=== PATIENT | male | born 1980 | race Hispanic/Latino ===

== ENCOUNTER 2016-10-18 17:09 | Emergency (ER) | payer MEDICARE ==
--- NOTE | 2016-10-18 20:53 | Emergency Department Report ---
ED General Adult HPI - General Chief complaint: Fall Stated complaint: ELEVATED BP/NECK/ARM/HAND PAIN Time Seen by Provider: 10/18/16 20:43 Source: patient Mode of arrival: Ambulatory Limitations: No Limitations - History of Present Illness Initial comments: Chronic pain patient presents requesting occasional refill for [place] 10/325 by mouth 3 times a day and Zanaflex twice a day which she takes for chronic back pain due to bulging L3, L4, and L5 discs which causes his legs to give out every now and then. Patient states he missed his PM appointment 3 days ago as he didn't have money to pay for visit. States received his check and has appointment rescheduled for 10/24/16. States he ran out of pain meds on Thursday (4 days ago) and would like some refills until his next appointment. Patient reports falling about a week ago after his legs gave out on him. States he was taking his pain meds for it until he ran out. States hurting all over and would like something for pain. Denies head injury, LOC, chest pain or discomfort. States he has HTN and is "supposed to be on Lisinopril 20 mg PO daily" which he hasn't taken in 2 weeks after he ran out. States had throbbing headache that comes and goes. Denies other associated symptoms, and complaints today. Allergy confirme. 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 - Related Data Previous Rx's Medication Instructions Recorded Last Taken Type Acetaminophen/Codeine [Tylenol #3] 1 tab PO Q6H PRN #7 tab 06/26/16 Unknown Rx Diclofenac Sodium 75 mg PO BID #20 tablet. 06/26/16 Unknown Rx Lisinopril [Zestril TAB] 10 mg PO QDAY #10 tablet 06/26/16 Unknown Rx Ketorolac [Toradol] 10 mg PO Q6H PRN #20 tablet 07/02/16 Unknown Rx Naproxen [Naprosyn TAB] 500 mg PO BID PRN #14 tablet 08/25/16 Unknown Rx HYDROcodone/APAP 5-325 [[place] 1 each PO TID PRN #15 tablet 10/18/16 Unknown Rx 5/325] Lisinopril [Zestril TAB] 20 mg PO QDAY #20 tablet 10/18/16 Unknown Rx Tizanidine HCl [Zanaflex] 4 mg PO TID PRN #10 capsule 10/18/16 Unknown Rx Allergies Allergy/AdvReac Type Severity Reaction Status Date / Time tramadol Allergy Rash Verified 08/25/16 14:13 ED Review of Systems ROS: Stated complaint: ELEVATED BP/NECK/ARM/HAND PAIN Other details as noted in HPI Comment: All other systems reviewed and negative ED Past Medical Hx - Past Medical History Previous Medical History?: Yes Hx Hypertension: Yes Additional medical history: MORBID OBESITY. CHRONIC BACK PAIN. HERNIATED DISCS LUMBAR - Surgical History Past Surgical History?: No - Social History Smoking Status: Current Some Day Smoker Substance Use Type: None - Medications Home Medications: Home Medications Medication Instructions Recorded Confirmed Last Taken Type Acetaminophen/Codeine [Tylenol #3] 1 tab PO Q6H PRN #7 tab 06/26/16 Unknown Rx Diclofenac Sodium 75 mg PO BID #20 tablet. 06/26/16 Unknown Rx Lisinopril [Zestril TAB] 10 mg PO QDAY #10 tablet 06/26/16 Unknown Rx Ketorolac [Toradol] 10 mg PO Q6H PRN #20 tablet 07/02/16 Unknown Rx Naproxen [Naprosyn TAB] 500 mg PO BID PRN #14 tablet 08/25/16 10/18/16 Unknown Rx HYDROcodone/APAP 5-325 [[place] 1 each PO TID PRN #15 tablet 10/18/16 Unknown Rx 5/325] Lisinopril [Zestril TAB] 20 mg PO QDAY #20 tablet 10/18/16 Unknown Rx Tizanidine HCl [Zanaflex] 4 mg PO TID PRN #10 capsule 10/18/16 Unknown Rx ED Physical Exam - General Limitations: No Limitations General appearance: alert, in no apparent distress, obese (morbidly) - Head Head exam: Present: atraumatic, normocephalic - Eye Eye exam: Present: normal appearance, PERRL, EOMI. Absent: scleral icterus, conjunctival injection, periorbital swelling, periorbital tenderness - Neck Neck exam: Present: normal inspection, tenderness (b/l C-spine), full ROM. Absent: meningismus, lymphadenopathy - Respiratory Respiratory exam: Present: normal lung sounds bilaterally. Absent: respiratory distress, chest wall tenderness - Cardiovascular Cardiovascular Exam: Present: regular rate, normal rhythm - GI/Abdominal GI/Abdominal exam: Present: soft, normal bowel sounds - Extremities Exam Extremities exam: Present: normal inspection, full ROM, normal capillary refill , joint swelling. Absent: tenderness (b/l knee), pedal edema, calf tenderness - Back Exam Back exam: Present: normal inspection, tenderness, vertebral tenderness (L- spine region). Absent: full ROM, CVA tenderness (R), CVA tenderness (L) - Neurological Exam Neurological exam: Present: alert, oriented X3, normal gait, reflexes normal. Absent: motor sensory deficit - Psychiatric Psychiatric exam: Present: normal affect, normal mood - Skin Skin exam: Present: warm, dry, intact ED Course Vital Signs 10/18/16 10/18/16 10/18/16 17:32 21:21 21:26 Temperature 98.7 F 97.8 F Pulse Rate 87 86 Respiratory 16 20 18 Rate Blood Pressure 176/97 Blood Pressure 154/97 [Left] O2 Sat by Pulse 97 97 Oximetry ED Medical Decision Making - Medical Decision Making 36 YOM with chronic pain and HTN. Patient is stable. He will be DC'd immediate quantity of Wysox and Zanaflex (see rx) pending his appointment with his brush painter in 10/24/16. The patient will be restarted on his lisinopril 20 mg for his elevated blood pressure (see prescription). The potential for adequate BP control in preventing heart attack and stroke discussed. Other patient education, follow-up/referral, and return instructions are provided. He verbalized understanding and is agreeable to plan. Critical care attestation.: If time is entered above; I have spent that time in minutes in the direct care of this critically ill patient, excluding procedure time. ED Disposition Clinical Impression: Pain management, Unspecified essential hypertension Chronic pain Qualifiers: Chronic pain type: chronic pain syndrome Qualified Code(s): G89.4 - Chronic pain syndrome Disposition: DISCHARGED TO HOME OR SELFCARE Is pt being admited?: No Does the pt Need Aspirin: No Condition: Stable Instructions: Chronic Pain (ED), Hypertension (ED) Additional Instructions: Follow Instructions for care. Be complaint up with and use medications as prescribed. Follow-up immediately with your PCP for your elevated blood pressure. As not doing so in a timely manner could result in a heart attack or stroke. Continue to follow up with your brush painter. Return to the ED for new or worsening condition. Prescriptions: HYDROcodone/APAP 5-325 [[place] 5/325] 1 each PO TID PRN #15 tablet PRN Reason: Pain Tizanidine HCl [Zanaflex] 4 mg PO TID PRN #10 capsule PRN Reason: Muscle Spasm Lisinopril [Zestril TAB] 20 mg PO QDAY #20 tablet Referrals: PRIMARY CARE, [Primary Care Provider] - 3-5 Days
[2016-10-18] MEDS ORDERED: NORCO 7.5/325 PO ONE (21:02)
[2016-10-18 21:28] VITALS: BP 154/97
== END 2016-10-18 21:30 | disposition home or self-care (01) ==
LOC: ED 17:09
DX: I10 Essential (primary) hypertension (principal); G89.4 Chronic pain syndrome; E66.01 Morbid (severe) obesity due to excess calories; Z88.8 Allergy status to other drugs, medicaments and biological substances; Z72.0 Tobacco use
CPT/HCPCS: 99282

== ENCOUNTER 2016-12-17 14:53 | Emergency (ER) | payer MEDICARE ==
[2016-12-17 16:50] LABS: Urine Drugs of Abuse Note Disclamer
[2016-12-17 16:53] LABS: Basophils % (Auto) 0.6 % (0.0-1.8); Eosinophils % (Auto) 0.2 % (0.0-4.3); Hematocrit 47.2 % (35.5-45.6); Hemoglobin 15.6 gm/dl (11.8-15.2); Mean Corpuscular HGB Conc 33 % (32-34); Mean Corpuscular Hemoglobin 31 pg (28-32); Mean Corpuscular Volume 93 fl (84-94); Platelet Count 359 K/mm3 (140-440); Red Blood Count 5.07 M/mm3 (3.65-5.03); Red Cell Distribution Width 13.8 % (13.2-15.2); White Blood Count 12.1 K/mm3 (4.5-11.0)
[2016-12-17 17:04] LABS: Bilirubin,Urine NEG (Negative); Blood,Urine SM (Negative); Ketones,Urine NEG (Negative); Leukocyte Esterase,Urine LG (Negative); Mucus,Urine FEW /HPF; Nitrite,Urine NEG (Negative); Protein,Urine <15 mg/dL mg/dL (Negative); Urobilinogen,Urine < 2.0 mg/dL (<2.0)
[2016-12-17 17:09] LABS: Anion Gap 17 mmol/L; Blood Urea Nitrogen 6 mg/dL (9-20); Calcium 9.9 mg/dL (8.4-10.2); Carbon Dioxide 27 mmol/L (22-30); Chloride 100.6 mmol/L (98-107); Glucose 111 mg/dL (75-100); Potassium 3.4 mmol/L (3.6-5.0); Sodium 141 mmol/L (137-145)
[2016-12-17] MEDS ORDERED: K-DUR PO ONE (21:32)
[2016-12-17] MEDS ORDERED: TORADOL IM ONE (21:46)
--- NOTE | 2016-12-17 22:15 | Emergency Department Report ---
ED Psych HPI - General Chief Complaint: Psych Stated Complaint: DEPRESSED/MH Time Seen by Provider: 12/17/16 21:31 Source: patient Mode of arrival: Ambulatory Limitations: No Limitations - History of Present Illness Initial Comments: 36-year-old male with a past medical history of hypertension, major depressive disorder, generalized anxiety disorder, chronic back pain secondary to herniated disc, DJD, and sciatica presents to the hospital with complaints of depression and suicidal ideation. Patient has been off his psychiatric medication Effexor, BuSpar, and Seroquel 1 month. He has been feeling more depressed for the last few days and having thoughts of killing himself. He sleeping a lot more, loss of hope, he is tired of having pain all the time. No complaints of hallucinations or homicidal ideation. Patient complains of chronic lower back pain rated 8/10 in intensity. It is constant, worse with movement and palpation, and no specific alleviating factors. Patient states pain is unchanged from baseline. Patient has a history of suicide attempt by overdose 3-4 years ago. - Related Data Home Medications Medication Instructions Recorded Confirmed Last Taken HYDROcodone/APAP 10-325 [[place] 10 mg PO Q6HR PRN 12/17/16 12/17/16 12/14/16 10/325] Lisinopril [Zestril] 20 mg PO QDAY 12/17/16 12/17/16 12/14/16 Quetiapine Fumarate [Seroquel] 100 mg PO DAILY 12/17/16 12/17/16 12/14/16 Venlafaxine Xr [Effexor Xr] 300 mg PO QDAY 12/17/16 12/17/16 12/14/16 busPIRone [Buspar] 10 mg PO DAILY 12/17/16 12/17/16 12/14/16 Allergies Allergy/AdvReac Type Severity Reaction Status Date / Time tramadol Allergy FLUSH / Verified 12/17/16 15:39 VOMIT ED Review of Systems ROS: Stated complaint: DEPRESSED/MH Other details as noted in HPI Comment: All other systems reviewed and negative Other: Constitutional: No fevers chills Eyes: No eye pain visual changes ENT: No ear pain or throat pain Neck: Denies pain Respiratory: Denies cough wheezing shortness of breath Cardiovascular: Denies chest pain, palpitations, syncope GI: Denies abdominal pain, nausea, vomiting, diarrhea : Denies dysuria Musculoskeletal: as pr hpi Skin: Denies rash, lesions, erythema Neurologic: Denies headache, numbness, weakness Psychiatric: as per hpi ED Past Medical Hx - Past Medical History Hx Hypertension: Yes Hx Arthritis: Yes (OSTEOARTHRITIS) Hx Psychiatric Treatment: Yes (MAJOR DEPRESSIVE DISORDER / GENERALIZED ANXIETY DISORDER / ADD) Additional medical history: MORBID OBESITY. CHRONIC BACK PAIN. HERNIATED DISCS LUMBAR. DDD / SCIATICA - Surgical History Past Surgical History?: No - Social History Smoking Status: Current Some Day Smoker Substance Use Type: Prescribed, Other - Medications Home Medications: Home Medications Medication Instructions Recorded Confirmed Last Taken Type HYDROcodone/APAP 10-325 [[place] 10 mg PO Q6HR PRN 12/17/16 12/17/16 12/14/16 History 10/325] Lisinopril [Zestril] 20 mg PO QDAY 12/17/16 12/17/16 12/14/16 History Quetiapine Fumarate [Seroquel] 100 mg PO DAILY 12/17/16 12/17/16 12/14/16 History Venlafaxine Xr [Effexor Xr] 300 mg PO QDAY 12/17/16 12/17/16 12/14/16 History busPIRone [Buspar] 10 mg PO DAILY 12/17/16 12/17/16 12/14/16 History ED Physical Exam - General Limitations: No Limitations - Other Other exam information: General: No limitations, patient is alert in no acute distress Head exam: Atraumatic, normocephalic Eyes exam: Normal appearance ENT: Moist mucous membrane, normal oropharynx Neck exam: Normal inspection, full range of motion, no meningismus nontender Respiratory exam: Clear to auscultation bilateral, no wheezes, rales, crackles Cardiovascular: Normal rate and rhythm, normal heart sounds Abdomen: Soft, nondistended, and nontender, with normal bowel sounds, no rebound, or guarding Extremity: Full range of motion normal inspection no deformity Back: Normal Inspection, full range of motion, lower back tenderness increased pain with movement Neurologic: Alert, oriented x3, cranial nerves intact, no motor or sensory deficit Psychiatric: normal affect, normal mood Skin: Warm, dry, intact ED Course Vital Signs 12/17/16 12/17/16 12/17/16 15:35 21:27 21:28 Temperature 98.3 F Pulse Rate 89 88 Respiratory 20 18 18 Rate Blood Pressure 158/103 Blood Pressure 179/107 [Left] O2 Sat by Pulse 100 98 Oximetry - Reevaluation(s) Reevaluation #1: 12/17/16 22:20 Toradol, potassium, and Bactrim ED Medical Decision Making - Lab Data Result diagrams: 12/17/16 16:17 12/17/16 16:17 Lab Results 12/17/16 12/17/16 12/17/16 Range/Units 16:17 16:17 16:17 WBC 12.1 H (4.5-11.0) K/mm3 RBC 5.07 H (3.65-5.03) M/mm3 Hgb 15.6 H (11.8-15.2) gm/dl Hct 47.2 H (35.5-45.6) % MCV 93 (84-94) fl MCH 31 (28-32) pg MCHC 33 (32-34) % RDW 13.8 (13.2-15.2) % Plt Count 359 (140-440) K/mm3 Lymph % (Auto) 15.8 (13.4-35.0) % Stokes % (Auto) 5.4 (0.0-7.3) % Eos % (Auto) 0.2 (0.0-4.3) % Baso % (Auto) 0.6 (0.0-1.8) % Lymph # 1.9 (1.2-5.4) K/mm3 Stokes # 0.7 (0.0-0.8) K/mm3 Eos # 0.0 (0.0-0.4) K/mm3 Baso # 0.1 (0.0-0.1) K/mm3 Seg Neutrophils % 78.0 H (40.0-70.0) % Seg Neutrophils # 9.4 H (1.8-7.7) K/mm3 Sodium 141 (137-145) mmol/L Potassium 3.4 L (3.6-5.0) mmol/L Chloride 100.6 (98-107) mmol/L Carbon Dioxide 27 (22-30) mmol/L Anion Gap 17 mmol/L BUN 6 L (9-20) mg/dL Creatinine 0.6 L (0.8-1.5) mg/dL Estimated GFR > 60 ml/min BUN/Creatinine Ratio 10.00 % Glucose 111 H (75-100) mg/dL Calcium 9.9 (8.4-10.2) mg/dL Magnesium (1.7-2.3) mg/dL Urine Color (Yellow) Urine Turbidity (Clear) Urine pH (5.0-7.0) Ur Specific [place] (1.003-1.030) Urine Protein (Negative) mg/dL Urine Glucose (UA) (Negative) mg/dL Urine Ketones (Negative) mg/dL Urine Blood (Negative) Urine Nitrite (Negative) Urine Bilirubin (Negative) Urine Urobilinogen (<2.0) mg/dL Ur Leukocyte Esterase (Negative) Urine WBC (Auto) (0.0-6.0) /HPF Urine RBC (Auto) (0.0-6.0) /HPF U Epithel Cells (Auto) (0-13.0) /HPF Calcium Oxalate Crystal Urine Mucus /HPF Urine Opiates Screen Urine Methadone Screen Ur Barbiturates Screen Ur Phencyclidine Scrn Ur Amphetamines Screen U Benzodiazepines Scrn Urine Cocaine Screen U Marijuana (THC) Screen Drugs of Abuse Note Plasma/Serum Alcohol < 0.01 (0-0.07) gm% 12/17/16 12/17/16 12/17/16 Range/Units 16:17 16:31 16:31 WBC (4.5-11.0) K/mm3 RBC (3.65-5.03) M/mm3 Hgb (11.8-15.2) gm/dl Hct (35.5-45.6) % MCV (84-94) fl MCH (28-32) pg MCHC (32-34) % RDW (13.2-15.2) % Plt Count (140-440) K/mm3 Lymph % (Auto) (13.4-35.0) % Stokes % (Auto) (0.0-7.3) % Eos % (Auto) (0.0-4.3) % Baso % (Auto) (0.0-1.8) % Lymph # (1.2-5.4) K/mm3 Stokes # (0.0-0.8) K/mm3 Eos # (0.0-0.4) K/mm3 Baso # (0.0-0.1) K/mm3 Seg Neutrophils % (40.0-70.0) % Seg Neutrophils # (1.8-7.7) K/mm3 Sodium (137-145) mmol/L Potassium (3.6-5.0) mmol/L Chloride (98-107) mmol/L Carbon Dioxide (22-30) mmol/L Anion Gap mmol/L BUN (9-20) mg/dL Creatinine (0.8-1.5) mg/dL Estimated GFR ml/min BUN/Creatinine Ratio % Glucose (75-100) mg/dL Calcium (8.4-10.2) mg/dL Magnesium 1.9 (1.7-2.3) mg/dL Urine Color Yellow (Yellow) Urine Turbidity Clear (Clear) Urine pH 5.0 (5.0-7.0) Ur Specific [place] 1.018 (1.003-1.030) Urine Protein <15 mg/dl (Negative) mg/dL Urine Glucose (UA) Neg (Negative) mg/dL Urine Ketones Neg (Negative) mg/dL Urine Blood Sm (Negative) Urine Nitrite Neg (Negative) Urine Bilirubin Neg (Negative) Urine Urobilinogen < 2.0 (<2.0) mg/dL Ur Leukocyte Esterase Lg (Negative) Urine WBC (Auto) 19.0 H (0.0-6.0) /HPF Urine RBC (Auto) 2.0 (0.0-6.0) /HPF U Epithel Cells (Auto) 2.0 (0-13.0) /HPF Calcium Oxalate Crystal 2+ Urine Mucus Few /HPF Urine Opiates Screen Presumptive negative Urine Methadone Screen Presumptive negative Ur Barbiturates Screen Presumptive negative Ur Phencyclidine Scrn Presumptive negative Ur Amphetamines Screen Presumptive negative U Benzodiazepines Scrn Presumptive negative Urine Cocaine Screen Presumptive negative U Marijuana (THC) Screen Presumptive negative Drugs of Abuse Note Disclamer Plasma/Serum Alcohol (0-0.07) gm% - Medical Decision Making Patient has mild hypokalemia which was supplemented in the ER. Magnesium is normal. Patient has mildly her leukocytosis without enters of dysuria. Urine culture ordered and patient will be treated with Bactrim. I will reinitiate patient's previous psychiatric medication as well as the medication he currently takes. 1013 and transfer form signed. Patient awaiting placement. - Differential Diagnosis chronic pain, suicidal ideation, depression, medication noncompliance Critical Care Time: No Critical care attestation.: If time is entered above; I have spent that time in minutes in the direct care of this critically ill patient, excluding procedure time. ED Disposition Clinical Impression: Suicidal ideation, Depression, Chronic back pain, UTI (urinary tract infection) , Noncompliance with medication regimen Disposition: DC/TX PSY HOSP/PSY UNIT Is pt being admited?: No Does the pt Need Aspirin: No Condition: Stable Time of Disposition: 22:15 (awaiting acceptance)
[2016-12-17] MEDS: BACTRIM DS PO SCH (22:36)
[2016-12-17] MEDS ORDERED: MOTRIN PO PRN (22:59)
[2016-12-17] MEDS ORDERED: ALUM-MAG HYDROX-SIMETH 200-200-20MG/5ML PO PRN (22:59)
[2016-12-17] MEDS ORDERED: PERCOCET 5/325 PO PRN (22:59)
[2016-12-17] MEDS ORDERED: MILK OF MAGNESIA PO PRN (22:59)
[2016-12-18 08:45] VITALS: BP 165/99
--- NOTE | 2016-12-18 09:55 | Consultation ---
History of Present Illness - Reason for Consult Consult date: 12/18/16 Reason for consult: Mental Health Evaluation Requesting physician: ANISA CARO - Chief Complaint Chief complaint: "I have Suicidal Thoughts" - History of Present Psychiatric Illness 36-year-old male with a past medical history of hypertension, major depressive disorder, generalized anxiety disorder, chronic back pain secondary to herniated disc, DJD, and sciatica presents to the hospital with complaints of depression and suicidal ideation. Today patients admits to SI's. He states that he has thought of multiple plans (ODing or walking in front of traffic.) Patient states that he hasn't taken his medication x 1 or 2 month. He stated, " I felt okay, that's why I stopped taking my medications." He acknowledged he takes Seroquel, Effexor, and Buspar. Patient said he knew he needed help, so that was his indication to come to [facility]. Normally his depression can get so bad , that he would experience psychosis, per the patient. Patient rates his anxiety /depression 9/10 with 10 being the worse. Patient states he has not gotten adequate sleep in days, but his appetite is "good". Patient denies HI's and AVH' s at this time. Medications and Allergies Allergies Allergy/AdvReac Type Severity Reaction Status Date / Time tramadol Allergy FLUSH / Verified 12/17/16 15:39 VOMIT Home Medications Medication Instructions Recorded Confirmed Last Taken Type HYDROcodone/APAP 10-325 [[place] 10 mg PO Q6HR PRN 12/17/16 12/17/16 12/14/16 History 10/325] Lisinopril [Zestril] 20 mg PO QDAY 12/17/16 12/17/16 12/14/16 History Quetiapine Fumarate [Seroquel] 100 mg PO DAILY 12/17/16 12/17/16 12/14/16 History Venlafaxine Xr [Effexor Xr] 300 mg PO QDAY 12/17/16 12/17/16 12/14/16 History busPIRone [Buspar] 10 mg PO DAILY 12/17/16 12/17/16 12/14/16 History Active Meds: Active Medications Al Hydrox/Mg Hydrox/Simethicone (Alum-Mag Hydrox-Simeth [id number]/5ml) 30 ml PO Q4HR PRN PRN Reason: Indigestion Buspirone HCl (Buspar) 10 mg PO DAILY [facility] Ibuprofen (Motrin) 800 mg PO Q8HR PRN PRN Reason: Pain Lisinopril (Zestril) 20 mg PO QDAY [facility] Magnesium Hydroxide (Milk Of Magnesia) 30 ml PO Q12HR PRN PRN Reason: Constipation Oxycodone/Acetaminophen (Percocet 5/325) 1 tab PO Q6H PRN PRN Reason: Pain, Moderate (4-6) Quetiapine Fumarate (Seroquel) 100 mg PO QHS [facility] Trimethoprim/Sulfamethoxazole (Bactrim Ds) 1 each PO Q12HR SARAHI Stop: 12/20/16 10:01 Last Admin: 12/17/16 22:36 Dose: 1 each Venlafaxine HCl (Effexor Xr) 300 mg PO QDAY [facility] Past psychiatric history - Past Medical History Past Medical History: other (OSTEOARTHRITIS, Back Pain) Past Surgical History: No surgical history - past Psychiatric treatment and history Psych: Anxiety, Depression psychiatric treatment history: [facility], [facility], [facility] and currently seen at [facility]. Sister dx with Schizoaffectiv Disorder.. - Social History Social history: , other ( graduate) Mental Status Exam - Vital signs Last Vital Signs Temp 97.6 F 12/18/16 08:00 Pulse 72 12/18/16 08:00 Resp 16 12/18/16 08:44 BP 165/99 12/18/16 08:00 Pulse Ox 97 12/18/16 08:44 - Exam Narrative exam: ROS (+) depression, (-) psychosis Orientation: time, place, person Affect: flat Mood: other ("Depressed") Thought content: other (None) Thought Process: Intact Perceptions: none Speech: normal rate and pattern Concentration: other (Intact) Motor activity: other (Ambulatory) Level of consciousness: alert Memory: Intact Sleep Symptoms: Difficulty Falling Asleep Results Result Diagrams: 12/17/16 16:17 12/17/16 16:17 Abnormal lab results 12/17/16 12/17/16 12/17/16 Range/Units 16:17 16:17 16:31 WBC 12.1 H (4.5-11.0) K/mm3 RBC 5.07 H (3.65-5.03) M/mm3 Hgb 15.6 H (11.8-15.2) gm/dl Hct 47.2 H (35.5-45.6) % Seg Neutrophils % 78.0 H (40.0-70.0) % Seg Neutrophils # 9.4 H (1.8-7.7) K/mm3 Potassium 3.4 L (3.6-5.0) mmol/L BUN 6 L (9-20) mg/dL Creatinine 0.6 L (0.8-1.5) mg/dL Glucose 111 H (75-100) mg/dL Urine WBC (Auto) 19.0 H (0.0-6.0) /HPF All other labs normal. Assessment and Plan Assessment and plan: Impression: Hx of MDD and ALLIE. Patient presents disheveled with a depressed mood. He realize that he needs help so he voluntarily came to [facility]. Recommendation: Continue 1013 and pending inpatient psychiatric services. Continue Seroquel, Effexor, and Buspar. Discussed with patient black box warning referencing Antidepressants. Also, we discussed metabolic side effects of Seroquel.
[2016-12-18] MEDS ORDERED: BUSPAR PO SCH (10:00)
[2016-12-18] MEDS ORDERED: EFFEXOR XR PO SCH (10:00)
[2016-12-18] MEDS ORDERED: ZESTRIL PO SCH (10:00)
[2016-12-18] MEDS: BACTRIM DS PO SCH (10:04)
== END 2016-12-18 11:36 ==
LOC: ED 14:53 → EEVIPCON 14:53 → ED 12-18 11:36
DX: R45.851 Suicidal ideations (principal); F32.9 Major depressive disorder, single episode, unspecified; G89.29 Other chronic pain; N39.0 Urinary tract infection, site not specified; I10 Essential (primary) hypertension; M19.90 Unspecified osteoarthritis, unspecified site; M51.36 Other intervertebral disc degeneration, lumbar region; F17.200 Nicotine dependence, unspecified, uncomplicated; Z88.8 Allergy status to other drugs, medicaments and biological substances
CPT/HCPCS: 36415; 80048; 80307; 81001; 83735; 85025; 87086; 96372; 99285; G0480; J1885; 80320

== ENCOUNTER 2016-12-29 14:03 | Emergency (ER) | payer MEDICARE ==
[2016-12-29 15:01] LABS: Basophils % (Auto) 0.6 % (0.0-1.8); Eosinophils % (Auto) 0.2 % (0.0-4.3); Hematocrit 46.4 % (35.5-45.6); Hemoglobin 15.6 gm/dl (11.8-15.2); Mean Corpuscular HGB Conc 34 % (32-34); Mean Corpuscular Hemoglobin 31 pg (28-32); Mean Corpuscular Volume 92 fl (84-94); Platelet Count 335 K/mm3 (140-440); Red Blood Count 5.03 M/mm3 (3.65-5.03); Red Cell Distribution Width 13.8 % (13.2-15.2)
[2016-12-29 15:16] LABS: Anion Gap 17 mmol/L; Blood Urea Nitrogen 9 mg/dL (9-20); Calcium 9.5 mg/dL (8.4-10.2); Carbon Dioxide 28 mmol/L (22-30); Chloride 95.4 mmol/L (98-107); Glucose 137 mg/dL (75-100); Potassium 3.5 mmol/L (3.6-5.0); Sodium 137 mmol/L (137-145)
[2016-12-29 16:19] LABS: Urine Drugs of Abuse Note Disclamer
[2016-12-29 16:34] LABS: Bilirubin,Urine NEG (Negative); Blood,Urine NEG (Negative); Ketones,Urine TR mg/dL (Negative); Leukocyte Esterase,Urine MOD (Negative); Mucus,Urine 3+ /HPF; Nitrite,Urine NEG (Negative); Urobilinogen,Urine < 2.0 mg/dL (<2.0)
[2016-12-29] MEDS ORDERED: MOTRIN PO ONE (19:32)
[2016-12-29] MEDS ORDERED: NORCO 10/325 PO PRN (21:36)
[2016-12-29] MEDS ORDERED: VALIUM PO PRN (21:41)
[2016-12-29] MEDS ORDERED: ZESTRIL PO SCH (22:00)
--- NOTE | 2016-12-29 23:05 | Emergency Department Report ---
ED Psych HPI - General Chief Complaint: Psych Stated Complaint: NETTA MERRITTLORELEI Time Seen by Provider: 12/29/16 21:06 Source: patient Mode of arrival: Ambulatory - History of Present Illness Initial Comments: Patient is a 36-year-old male with a long history of depression and suicidal ideations in the past. Patient presents today with suicidal ideation and attempted to slit his left wrist. Patient says he uses it only cannot find a sharp knife. Patient feels more depressed and wants to end his life. Patient was recently admitted to a psych hospital and was discharged 1 week ago after saying he felt better when he reports he did not feel better he still feels depressed and suicidal. Patient takes , Effexor, Seroquel, Valium for his psych illnesses and reports that he has not missed any of his doses. Otherwise no other complaints. She denies hallucinations or delusions or homicidal ideations. MD Complaint: suicidal ideation, feels depressed -: week(s) (>1 week) Associated Psychiatric Symptoms: depression, suicidal ideation History of same: Yes (same as last week) Quality: constant, getting worse Improves With: none Worsens With: none Associated Symptoms: denies other symptoms Treatments Prior to Arrival: placed on mental he If Self Harm: admits thoughts of, has plan, has acted on plan Details of Plan: Patient attempt to cut his L wrist today, but could not find a sharp knife - Related Data Home Medications Medication Instructions Recorded Confirmed Last Taken HYDROcodone/APAP 10-325 [[place] 10 mg PO Q6HR PRN 12/17/16 12/17/16 12/14/16 10/325] Lisinopril [Zestril] 20 mg PO QDAY 12/17/16 12/17/16 12/14/16 Quetiapine Fumarate [Seroquel] 100 mg PO DAILY 12/17/16 12/17/16 12/14/16 Venlafaxine Xr [Effexor Xr] 300 mg PO QDAY 12/17/16 12/17/16 12/14/16 busPIRone [Buspar] 10 mg PO DAILY 12/17/16 12/17/16 12/14/16 Allergies Allergy/AdvReac Type Severity Reaction Status Date / Time tramadol Allergy FLUSH / Verified 12/17/16 15:39 VOMIT ED Review of Systems ROS: Stated complaint: MH EVAL Other details as noted in HPI Comment: All other systems reviewed and negative ED Past Medical Hx - Past Medical History Hx Hypertension: Yes Hx Arthritis: Yes (OSTEOARTHRITIS) Hx Psychiatric Treatment: Yes (MAJOR DEPRESSIVE DISORDER / GENERALIZED ANXIETY DISORDER / ADD) Additional medical history: MORBID OBESITY. CHRONIC BACK PAIN. HERNIATED DISCS LUMBAR. DDD / SCIATICA - Social History Smoking Status: Unknown if ever smoked Substance Use Type: None - Medications Home Medications: Home Medications Medication Instructions Recorded Confirmed Last Taken Type HYDROcodone/APAP 10-325 [[place] 10 mg PO Q6HR PRN 12/17/16 12/17/16 12/14/16 History 10/325] Lisinopril [Zestril] 20 mg PO QDAY 12/17/16 12/17/16 12/14/16 History Quetiapine Fumarate [Seroquel] 100 mg PO DAILY 12/17/16 12/17/16 12/14/16 History Venlafaxine Xr [Effexor Xr] 300 mg PO QDAY 12/17/16 12/17/16 12/14/16 History busPIRone [Buspar] 10 mg PO DAILY 12/17/16 12/17/16 12/14/16 History ED Physical Exam - General Limitations: No Limitations General appearance: alert, in no apparent distress - Head Head exam: Present: atraumatic, normocephalic - Eye Eye exam: Present: normal appearance - ENT ENT exam: Present: mucous membranes moist - Respiratory Respiratory exam: Present: normal lung sounds bilaterally. Absent: respiratory distress - Cardiovascular Cardiovascular Exam: Present: regular rate, normal rhythm. Absent: systolic murmur, diastolic murmur, rubs, gallop - GI/Abdominal GI/Abdominal exam: Present: soft, normal bowel sounds - Rectal Rectal exam: Present: deferred - Expanded Upper Extremity Exam Left General: Present: abrasion Shoulder Exam: Present: normal inspection, full ROM Upper Arm exam: Present: normal inspection, full ROM Elbow exam: Present: normal inspection, full ROM Forearm Wrist exam: Present: abrasion Hand Wrist exam: Present: abrasion Neuro motor exam: Present: wrist extension intact, thumb opposition intact, thumb IP flexion intact, thumb adduction intact, fingers 2-5 abduction intact Neurosensory exam: Present: 2-point discrimination, radial nerve intact, ulnar nerve intact, median nerve intact Vascular: Present: normal capillary refill, radial pulse, ulnar pulse. Absent: vascular compromise, pulse deficit radial art, pulse deficit ulnar art - Back Exam Back exam: Present: normal inspection - Neurological Exam Neurological exam: Present: alert, oriented X3 - Psychiatric Psychiatric exam: Present: depressed, flat affect - Skin Skin exam: Present: warm, dry ED Course Vital Signs 12/29/16 12/29/16 12/29/16 14:28 20:39 21:29 Temperature 98.2 F Pulse Rate 100 H 95 H Respiratory 20 18 16 Rate Blood Pressure 154/105 Blood Pressure 135/89 [Left] O2 Sat by Pulse 96 98 Oximetry ED Medical Decision Making - Lab Data Result diagrams: 12/29/16 14:42 12/29/16 14:42 - Medical Decision Making Patient placed on a 1013 patient to be evaluated by psychiatry screening team. Critical care attestation.: If time is entered above; I have spent that time in minutes in the direct care of this critically ill patient, excluding procedure time. ED Disposition Condition: Stable Referrals: PRIMARY CARE, [Primary Care Provider] - 3-5 Days
[2016-12-30 07:13] VITALS: BP 103/62
[2016-12-30] MEDS ORDERED: EFFEXOR XR PO SCH (10:00)
== END 2016-12-30 10:36 | disposition home or self-care (01) ==
LOC: ED 14:03 → EEVIPCON 14:03 → ED 12-30 10:36
DX: R45.851 Suicidal ideations (principal); F32.9 Major depressive disorder, single episode, unspecified; M19.90 Unspecified osteoarthritis, unspecified site; F41.9 Anxiety disorder, unspecified; G89.29 Other chronic pain; E66.01 Morbid (severe) obesity due to excess calories; Z88.8 Allergy status to other drugs, medicaments and biological substances
CPT/HCPCS: 36415; 80048; 80307; 81001; 85025; 93005; 93010; 99284

== ENCOUNTER 2018-11-25 19:45 | Emergency (ER) | payer MEDICARE ==
--- NOTE | 2018-11-25 20:00 | Emergency Department Report ---
Blank Doc - Documentation Documentation: This is a 38-year-old male that presents with bilateral knee pain s/p fall. This initial assessment/diagnostic orders/clinical plan/treatment(s) is/are subject to change based on patient's health status, clinical progression and re- assessment by fellow clinical providers in the ED. Further treatment and workup at subsequent clinical providers discretion. Patient/guardians urged not to elope from the ED as their condition may be serious if not clinically assessed and managed. Initial orders include: 1- Patient sent to [facility] for further evaluation and treatment 2- xrays
--- NOTE | 2018-11-25 21:04 | XRay Report ---
PROCEDURE: XR KNEE BILAT 3V TECHNIQUE: Bilateral knee radiographs, standing AP view. HISTORY: knee pain COMPARISONS: None . FINDINGS: Fracture (s) and/or Dislocation(s): None . Joint space(s): Normal . Soft tissues: Normal . Bone mineralization: Normal . Foreign bodies: None . IMPRESSION: Normal Examination . This document is electronically signed by Marc Melvin MD., November 25 2018 09:01:23 PM ET
--- NOTE | 2018-11-25 21:25 | Emergency Department Report ---
ED Extremity Problem HPI - General Chief complaint: Extremity Injury, Lower Stated complaint: BILATERAL LEG PAIN Time Seen by Provider: 11/25/18 19:59 Source: patient, family Mode of arrival: Wheelchair Limitations: Physical Limitation - History of Present Illness Initial comments: Pt is a 38 yo male who presents to the ED with c/o bilateral knee pain s/p a fall that occurred 1 hour [employer]. The patient states that he has had chronic issues with his left knee but has not been seen for it. He states he felt a buckling in his left knee and fell onto the concrete on his left knee. He states he also has pain on the posterior side of his right knee. The patient states he had to have help getting up. He has been able to stand on the bilateral legs but will not ambulate. The patient denies any numbness, weakness, tingling or any other sx. MD Complaint: extremity pain -: This afternoon Location: left, right, knee History of Same: Yes Radiation: none Severity scale (0 -10): 5 Quality: aching, sharp Consistency: constant Improves with: nothing Worsens with: weight bearing Associated Symptoms: denies other symptoms - Related Data Home Medications Medication Instructions Recorded Confirmed Last Taken HYDROcodone/APAP 10-325 [[place] 10 mg PO Q6HR PRN 12/17/16 12/29/16 1 Day Ago 10-325 mg TAB] ~12/28/16 Lisinopril [Zestril TAB] 20 mg PO QDAY 12/17/16 12/29/16 1 Day Ago ~12/28/16 Quetiapine Fumarate [Seroquel] 100 mg PO DAILY 12/17/16 12/29/16 1 Day Ago ~12/28/16 Venlafaxine Xr [Effexor XR] 300 mg PO QDAY 12/17/16 12/29/16 1 Day Ago ~12/28/16 busPIRone [Buspar] 10 mg PO DAILY 12/17/16 12/29/16 1 Day Ago ~12/28/16 Diazepam [Valium] 10 mg PO Q8H PRN 12/30/16 12/30/16 Unknown Previous Rx's Medication Instructions Recorded Last Taken Type Naproxen 500 mg PO Q6HR #20 tablet 11/25/18 Unknown Rx Allergies Allergy/AdvReac Type Severity Reaction Status Date / Time tramadol Allergy FLUSH / Verified 12/17/16 15:39 VOMIT ED Review of Systems ROS: Stated complaint: BILATERAL LEG PAIN Other details as noted in HPI Comment: All other systems reviewed and negative ED Past Medical Hx - Past Medical History Previous Medical History?: Yes Hx Hypertension: Yes Hx Arthritis: Yes (OSTEOARTHRITIS) Hx Psychiatric Treatment: Yes (MAJOR DEPRESSIVE DISORDER / GENERALIZED ANXIETY DISORDER / ADD) Additional medical history: MORBID OBESITY. CHRONIC BACK PAIN. HERNIATED DISCS LUMBAR. DDD / SCIATICA - Surgical History Past Surgical History?: No - Social History Smoking Status: Heavy Tobacco Smoker Substance Use Type: None - Medications Home Medications: Home Medications Medication Instructions Recorded Confirmed Last Taken Type HYDROcodone/APAP 10-325 [[place] 10 mg PO Q6HR PRN 12/17/16 12/29/16 1 Day Ago History 10-325 mg TAB] ~12/28/16 Lisinopril [Zestril TAB] 20 mg PO QDAY 12/17/16 12/29/16 1 Day Ago History ~12/28/16 Quetiapine Fumarate [Seroquel] 100 mg PO DAILY 12/17/16 12/29/16 1 Day Ago History ~12/28/16 Venlafaxine Xr [Effexor XR] 300 mg PO QDAY 12/17/16 12/29/16 1 Day Ago History ~12/28/16 busPIRone [Buspar] 10 mg PO DAILY 12/17/16 12/29/16 1 Day Ago History ~12/28/16 Diazepam [Valium] 10 mg PO Q8H PRN 12/30/16 12/30/16 Unknown History Naproxen 500 mg PO Q6HR #20 tablet 11/25/18 Unknown Rx ED Physical Exam - General Limitations: Physical Limitation General appearance: alert, in no apparent distress, obese - Head Head exam: Present: normocephalic - Eye Eye exam: Present: normal appearance - ENT ENT exam: Present: mucous membranes moist - Neck Neck exam: Present: normal inspection - Respiratory Respiratory exam: Absent: respiratory distress - Cardiovascular Cardiovascular Exam: Present: regular rate - Extremities Exam Extremities exam: Present: other (small abrasion to the right anterior knee, TTP over the patella, no joint laxity of the right knee, FROM, mild amount of TTP of the posterior left knee, FROM, no joint laxity, pt sitting in wheelchair, he will not ambulate) ED Course Vital Signs 11/25/18 19:59 Temperature 98 F Pulse Rate 90 Respiratory 18 Rate Blood Pressure 164/89 O2 Sat by Pulse 98 Oximetry ED Medical Decision Making - Radiology Data Radiology results: report reviewed, image reviewed bilateral knee XR: no acute process - Medical Decision Making Pt is a 38 yo obese male who presents with bilateral knee pain s/p fall. XR of the bilateral knees with no acute abnormality. Pt will not ambulate on his own, will give him walker and shahnaz wraps for the bilateral knees, will have pt follow up with ortho in the next couple of days. Also advised pt to follow up with his PCP to discuss OT referral. Critical care attestation.: If time is entered above; I have spent that time in minutes in the direct care of this critically ill patient, excluding procedure time. ED Disposition Clinical Impression: Left anterior knee pain, Posterior right knee pain, Pain management Chronic pain Qualifiers: Chronic pain type: other chronic pain Qualified Code(s): G89.29 - Other chronic pain Disposition: - TO HOME OR SELFCARE Is pt being admited?: No Does the pt Need Aspirin: No Condition: Stable Instructions: Knee Pain (ED) Additional Instructions: Follow up with ortho Dr. Danielson in the next couple of days. Follow up with PCP in the next couple of days, would recommend discussing with your PCP to have an OT referral. Prescriptions: Naproxen 500 mg PO Q6HR #20 tablet Referrals: VIK DANIELSON MD [Staff Physician] - 3-5 Days Time of Disposition: 21:48 Print Language: AUSTR[place]IAN
[2018-11-25] MEDS ORDERED: NORCO 5/325 PO ONE (21:51)
[2018-11-25 23:25] VITALS: BP 141/86
== END 2018-11-25 22:15 | disposition home or self-care (01) ==
LOC: ED 19:45
DX: S80.211A Abrasion, right knee, initial encounter (principal); M25.562 Pain in left knee; I10 Essential (primary) hypertension; M19.90 Unspecified osteoarthritis, unspecified site; E66.01 Morbid (severe) obesity due to excess calories; G89.29 Other chronic pain; M54.9 Dorsalgia, unspecified; F17.200 Nicotine dependence, unspecified, uncomplicated; Z88.6 Allergy status to analgesic agent; W18.30XA Fall on same level, unspecified, initial encounter; Y93.89 Activity, other specified; Y92.488 Other paved roadways as the place of occurrence of the external cause; Y99.8 Other external cause status
CPT/HCPCS: 99283

== ENCOUNTER 2019-02-25 01:34 | Emergency (ER) | payer MEDICARE ==
[2019-02-25] MEDS ORDERED: TYLENOL PO ONE (05:12)
[2019-02-25] MEDS ORDERED: IBUPROFEN PO ONE (05:12)
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
[2019-02-25 06:51] VITALS: BP 136/80
== END 2019-02-25 06:47 | disposition home or self-care (01) ==
LOC: ED 01:34
DX: S01.111A Laceration without foreign body of right eyelid and periocular area, initial encounter (principal); M54.5 Low back pain; G89.29 Other chronic pain; I10 Essential (primary) hypertension; M19.90 Unspecified osteoarthritis, unspecified site; F32.9 Major depressive disorder, single episode, unspecified; F17.200 Nicotine dependence, unspecified, uncomplicated; Y08.89XA Assault by other specified means, initial encounter; Y93.89 Activity, other specified; Y92.89 Other specified places as the place of occurrence of the external cause; Y99.8 Other external cause status
CPT/HCPCS: 72100

== ENCOUNTER 2019-02-28 22:53 | Emergency (ER) | payer MEDICARE ==
[2019-02-28 23:40] VITALS: BP 156/102
[2019-03-01] MEDS ORDERED: DECADRON IM ONE (03:42)
[2019-03-01] MEDS ORDERED: TORADOL IM ONE (03:42)
[2019-03-01] MEDS ORDERED: NORCO 5/325 PO ONE (03:43)
[2019-03-01] MEDS ORDERED: ZOFRAN ODT PO ONE (03:44)
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
== END 2019-03-01 04:20 | disposition home or self-care (01) ==
LOC: ED 22:53
DX: M54.5 Low back pain (principal); M62.830 Muscle spasm of back; M54.2 Cervicalgia; Z88.5 Allergy status to narcotic agent; I10 Essential (primary) hypertension; M19.90 Unspecified osteoarthritis, unspecified site; E66.01 Morbid (severe) obesity due to excess calories; Z68.43 Body mass index [BMI] 50.0-59.9, adult; G89.29 Other chronic pain; F17.200 Nicotine dependence, unspecified, uncomplicated
CPT/HCPCS: 96372; 99282; J1100; J1885; Q0162

== ENCOUNTER 2019-03-02 19:13 | Emergency (ER) | payer MEDICARE ==
--- NOTE | 2019-03-02 19:34 | Emergency Department Report ---
Blank Doc - Documentation Documentation: This is a 38-year-old male that presents with SI. This initial assessment/diagnostic orders/clinical plan/treatment(s) is/are subject to change based on patient's health status, clinical progression and re- assessment by fellow clinical providers in the ED. Further treatment and workup at subsequent clinical providers discretion. Patient/guardians urged not to elope from the ED as their condition may be serious if not clinically assessed and managed. Initial orders include: 1- Patient sent to MAIN ED for further evaluation and treatment 2- assembly worker was notified to have patient be brought back [facility]. 3- RN was notified to keep patient as close range and observation until room available 4- Patient presents with substantial risk of imminent harm to self, appears to be so unable to care for his/her own physical health and safety as to create an imminently life-endangering crisis, and has committed/expressed life endangering crisis to self. Due to this and other complaints, patient is put on 1013.
[2019-03-02 19:40] VITALS: BP 176/102
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
[2019-03-02] MEDS ORDERED: IBUPROFEN PO PRN (20:42)
[2019-03-02 21:10] LABS: Hematocrit 45.5 % (35.5-45.6); Hemoglobin 15.3 gm/dl (11.8-15.2); Mean Corpuscular HGB Conc 34 % (32-34); Mean Corpuscular Volume 95 fl (84-94); Red Blood Count 4.78 M/mm3 (3.65-5.03); Red Cell Distribution Width 15.1 % (13.2-15.2)
[2019-03-02 21:22] LABS: Bilirubin,Urine NEG (Negative); Blood,Urine NEG (Negative); Color,Urine Yellow (Yellow); Mucus,Urine FEW /HPF; Protein,Urine <15 mg/dL mg/dL (Negative); Urobilinogen,Urine < 2.0 mg/dL (<2.0)
[2019-03-02 21:28] LABS: BUN/Creatinine Ratio 18; Blood Urea Nitrogen 14 mg/dL (9-20); Calcium 9.8 mg/dL (8.4-10.2); Hemolysis Index 158
[2019-03-02 21:36] LABS: Amphetamine Screen,Urine PRESUMPTIVE NEGATIVE; Benzodiazepines Screen,Urine PRESUMPTIVE NEGATIVE; Cannabinoid Screen,Urine PRESUMPTIVE NEGATIVE; Cocaine Screen,Urine PRESUMPTIVE NEGATIVE; Methadone Screen,Urine PRESUMPTIVE NEGATIVE; Opiate Screen,Urine PRESUMPTIVE NEGATIVE
[2019-03-02 22:34] LABS: Basophils % (Manual) 0 % (0.0-1.8); Eosinophils % (Manual) 0 % (0.0-4.3); Myelocytes # (Manual) 0.4 K/mm3; Total Cells Counted 100
[2019-03-02 22:35] LABS: Anisocytosis Few; Platelet Estimate Consistent w Auto; Poikilocytosis Few
--- NOTE | 2019-03-02 22:35 | XRay Report ---
PROCEDURE: XR CHEST ROUTINE 2V TECHNIQUE: PA and lateral chest radiographs were obtained. HISTORY: elevated white count COMPARISONS: None. FINDINGS: Heart: Normal. Mediastinum/Vessels: Normal. Lungs/Pleural space: No infiltrate, effusion, or pneumothorax. Bony thorax: No acute osseous abnormality. IMPRESSION: No pulmonary infiltrates are seen. This document is electronically signed by Brenda Baxter MD., March 02 2019 10:33:23 PM ET
[2019-03-02 22:36] LABS: Platelet Count 283 K/mm3 (140-440)
[2019-03-02] MEDS ORDERED: LEVAQUIN PO SCH (22:41)
[2019-03-02] MEDS ORDERED: ZESTRIL PO ONE (22:42)
[2019-03-02] MEDS ORDERED: LEVAQUIN PO ONE (23:44)
[2019-03-03] MEDS ORDERED: ZESTRIL ONE (00:47)
[2019-03-03] MEDS ORDERED: ZESTRIL PO SCH (10:00)
[2019-03-03] MEDS ORDERED: LEVAQUIN PO SCH (10:00)
== END 2019-03-03 01:02 | disposition other institution (70) ==
LOC: ED 19:13
DX: F32.9 Major depressive disorder, single episode, unspecified (principal); N39.0 Urinary tract infection, site not specified; I10 Essential (primary) hypertension; M19.90 Unspecified osteoarthritis, unspecified site; F41.9 Anxiety disorder, unspecified; E66.09 Other obesity due to excess calories; G89.29 Other chronic pain; M54.9 Dorsalgia, unspecified; F17.200 Nicotine dependence, unspecified, uncomplicated; Z79.899 Other long term (current) drug therapy; Z88.6 Allergy status to analgesic agent
CPT/HCPCS: 36415; 71046; 80048; 80307; 81001; 85007; 85025; 87086; 99285; G0480; 80320

== ENCOUNTER 2019-03-19 12:08 | Emergency (ER) | payer MEDICARE ==
[2019-03-19 12:24] VITALS: BP 158/94
--- NOTE | 2019-03-19 12:27 | Emergency Department Report ---
ED Back Pain/Injury HPI - General Chief Complaint: Back Pain/Injury Stated Complaint: BACK PAIN Time Seen by Provider: 03/19/19 12:24 Source: patient, EMS Limitations: No Limitations - History of Present Illness Initial Comments: 38 y/o male comes in for chronic back pain. Patient was last seen in the ER on 02/28 for back pain and suicidal ideation on 03/02/19. Patient take Hydrocodone and gabapetin. Patient is followed by pain management. MD Complaint: back pain Onset/Timin -: year(s) Similar Symptoms Previously: Yes Quality: aching Consistency: intermittent Worsens With: walking Associated Symptoms: denies other symptoms - Related Data Home Medications Medication Instructions Recorded Confirmed Last Taken HYDROcodone/APAP 10-325 [[place] 10 mg PO Q6HR PRN 12/17/16 03/02/19 1 Day Ago 10-325 mg TAB] ~12/28/16 Lisinopril [Zestril TAB] 20 mg PO QDAY 12/17/16 03/02/19 1 Day Ago ~12/28/16 Venlafaxine Xr [Effexor XR] 150 mg PO QDAY 12/17/16 03/02/19 1 Day Ago ~12/28/16 Diazepam [Valium] 10 mg PO Q8H PRN 12/30/16 03/02/19 Unknown ARIPiprazole [Abilify] 20 mg PO DAILY 03/02/19 03/02/19 Unknown traZODone [Desyrel] 200 mg PO QHS 03/02/19 03/02/19 Unknown Previous Rx's Medication Instructions Recorded Last Taken Type Baclofen 20 mg PO Q8H PRN #15 tablet 03/01/19 Unknown Rx Allergies Allergy/AdvReac Type Severity Reaction Status Date / Time tramadol Allergy FLUSH / Verified 12/17/16 15:39 VOMIT ED Review of Systems ROS: Stated complaint: BACK PAIN Other details as noted in HPI Comment: All other systems reviewed and negative ED Past Medical Hx - Past Medical History Hx Hypertension: Yes Hx Arthritis: Yes (OSTEOARTHRITIS) Hx Psychiatric Treatment: Yes (MAJOR DEPRESSIVE DISORDER / GENERALIZED ANXIETY DISORDER / ADD) Additional medical history: MORBID OBESITY. CHRONIC BACK PAIN. HERNIATED DISCS LUMBAR. DDD / SCIATICA - Social History Smoking Status: Current Every Day Smoker Substance Use Type: None - Medications Home Medications: Home Medications Medication Instructions Recorded Confirmed Last Taken Type HYDROcodone/APAP 10-325 [[place] 10 mg PO Q6HR PRN 12/17/16 03/02/19 1 Day Ago [place] 10-325 mg TAB] ~12/28/16 Lisinopril [Zestril TAB] 20 mg PO QDAY 12/17/16 03/02/19 1 Day Ago History ~12/28/16 Venlafaxine Xr [Effexor XR] 150 mg PO QDAY 12/17/16 03/02/19 1 Day Ago History ~12/28/16 Diazepam [Valium] 10 mg PO Q8H PRN 12/30/16 03/02/19 Unknown History Baclofen 20 mg PO Q8H PRN #15 tablet 03/01/19 03/02/19 Unknown Rx ARIPiprazole [Abilify] 20 mg PO DAILY 03/02/19 03/02/19 Unknown History traZODone [Desyrel] 200 mg PO QHS 03/02/19 03/02/19 Unknown History ED Physical Exam - General Limitations: No Limitations General appearance: alert, in no apparent distress, obese - Head Head exam: Present: atraumatic, normocephalic - Eye Eye exam: Present: normal appearance - ENT ENT exam: Present: mucous membranes moist - Neck Neck exam: Present: tenderness, full ROM - Neurological Exam Neurological exam: Present: alert, oriented X3, normal gait - Psychiatric Psychiatric exam: Present: normal affect, normal mood - Skin Skin exam: Present: warm, dry, intact, normal color. Absent: rash ED Course Vital Signs 03/19/19 12:20 Temperature 99.6 F Pulse Rate 113 H Respiratory 20 Rate Blood Pressure 158/94 O2 Sat by Pulse 97 Oximetry ED Medical Decision Making - Medical Decision Making Patient comes in for chronic back pain with a recent exacerbation of pain. Discuss with patient to keep taking his pain medication and to follow up with his pain specialist and Primary Care provider. Critical care attestation.: If time is entered above; I have spent that time in minutes in the direct care of this critically ill patient, excluding procedure time. ED Disposition Clinical Impression: Chronic high back pain Disposition: DC-01 TO HOME OR SELFCARE Is pt being admited?: No Does the pt Need Aspirin: No Condition: Stable Instructions: Chronic Back Pain (ED) Additional Instructions: Follow up with your pain special and back special and Primary Care provider.
== END 2019-03-19 12:47 | disposition home or self-care (01) ==
LOC: ED 12:08
DX: G89.29 Other chronic pain (principal); M54.9 Dorsalgia, unspecified; I10 Essential (primary) hypertension; M19.90 Unspecified osteoarthritis, unspecified site; F32.9 Major depressive disorder, single episode, unspecified; F41.9 Anxiety disorder, unspecified; F17.200 Nicotine dependence, unspecified, uncomplicated; F98.8 Other specified behavioral and emotional disorders with onset usually occurring in childhood and adolescence; E66.01 Morbid (severe) obesity due to excess calories; Z98.890 Other specified postprocedural states; Z79.899 Other long term (current) drug therapy; Z88.6 Allergy status to analgesic agent
CPT/HCPCS: 72040; 72072

== ENCOUNTER 2019-03-19 13:26 | Emergency (ER) | payer MEDICARE ==
[2019-03-19 13:45] VITALS: BP 177/94
[2019-03-19] MEDS ORDERED: IBUPROFEN PO ONE (14:18)
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
== END 2019-03-19 15:35 | disposition home or self-care (01) ==
LOC: ED 13:26
DX: M54.89 Other dorsalgia (principal); G89.29 Other chronic pain; E66.01 Morbid (severe) obesity due to excess calories; Z68.43 Body mass index [BMI] 50.0-59.9, adult; M51.36 Other intervertebral disc degeneration, lumbar region
CPT/HCPCS: 72040; 72072